=== PATIENT | male | born 1955 | race Caucasian/White ===

== ENCOUNTER 2018-11-06 14:06 | Emergency (ER) | payer OTHER ==
[2018-11-06 14:39] LABS: PLATELET COUNT 350 10^3/uL (150-400)
--- NOTE | 2018-11-06 14:47 | EDPHY ---
HPI/HX/ROS/PE/MDM Narrative: CHIEF COMPLAINT: Inguinal pain, abnormal MRI/lab results. HPI: This patient is a 63 y/o male with history of hypertension and bilateral hip replacements. He arrives today at the request of his neurosurgeon at [facility] for evaluation of a left inguinal fluid collection noted on MRI this week. The patient's hip replacements were completed in [place], [place]. He notes that the left hip was dislocated in July 2017 while being lifted during an EMS transport following a syncopal event. This was replaced successful, but in November of 2017, he developed a severe pain in left hip/inguinal area. This has recurred intermittently since that time , and has been associated with persistent numbness in the left lower extremity. Last weekend, he was hiking and had another episode of inguinal pain which has persisted throughout the week. He was evaluated by neurosurgery on Friday and had an MRI, x-rays, and laboratory studies completed. Today, he was referred here to the emergency department following the results of these studies. He notes that on Friday and Friday he had chills and felt somewhat febrile. Apart from the inguinal pain and left lower extremity numbness, the patient currently feels well. He denies chest pain, difficulty breathing, vomiting, diarrhea, hematuria, incontinence of bladder or bowel, motor deficits in his lower extremities, or other associated symptoms. REVIEW OF SYSTEMS: A comprehensive 10 system review of systems is otherwise negative aside from elements mentioned in the history of present illness and medical decision making. PMH: Bilateral hip replacements. Hypertension (Losartan). SOCIAL HISTORY: Lives in [place]. . PHYSICAL EXAM: General:Patient is alert, in no acute distress. ENT:Eyes are normal to inspection. ENT inspection normal. Neck: Normal inspection. Full range of motion. Respiratory:No respiratory distress. Breath sounds normal bilaterally. Cardiovascular: Regular rate and rhythm. Strong peripheral pulses. Normal cap refill. Abdomen: Tenderness to left anterior groin. The abdomen is nontender to palpation. There are no peritoneal signs. There are normal bowel sounds. Back: Normal to inspection. No tenderness to palpation. Skin: Normal color. No rash. Warm and dry. Extremities: Normal appearance. Full range of motion. Neuro: Oriented x3. Normal motor function. Normal sensory function. ED Course: 63 y/o male with history of bilateral hip replacements arrives at the request of his neurosurgeon's office for evaluation of abnormal findings on an MRI completed this week. He has had intermittent left anterior groin pain and left lower extremity numbness for the past year, more pronounced over the past week following a hike. MRI showed a pocket of fluid suspicious for infection vs. bleeding. Spoke with Dr. Pulido, radiologist. He request CT pelvis with contrast for further evaluation. 16:[address] shows muscle inflammation, no obvious encapsulated area of fluid. See radiologist report for details. Plan for fluid biopsy under CT guidance. . 17:28 Patient returned from biopsy. ~25cc fluid drained and sent for laboratory testing. Patient feels significantly better following the procedure. 17:[address] Malone, transitional living specialist. He will follow up with the patient in the outpatient setting. Reassessed patient. He is feeling well. He is completely alert and oriented following his procedure. Plan to road test. Patient passed road test successfully. He is comfortable with discharge home. He will follow up with Dr. Malone early next week. Follow up and return precautions discussed. He is comfortable with this plan. - Data Points Imaging Results: Imaging Impressions Pelvis CT 11/06/18 15:00 Impression: 1. Heterogeneity of the left iliopsoas muscle with surrounding inflammation. There is no encapsulated fluid collection but there may be some complex fluid in the iliacus muscle near the arthroplasty. Differential includes acute hemorrhagic myositis or infection, possibly from the hip joint. A CT-guided aspiration will be attempted. 2. Left iliac adenopathy, likely reactive. Findings and recommendations discussed with Vel Llanos MD at 1632 hour, 11/06/2018. Muscle Biopsy CT 11/06/18 16:15 IMPRESSION: Technically successful CT-guided aspiration of a left iliacus fluid collection. Approximately 25 mL of bloody material was aspirated and sent to laboratory for microbiologic analysis. Findings and recommendations discussed with Dr. Llanos at 1725 hour, 2018. Imaging: Discussed imaging studies w/ on call Radiologist Laboratory Results: Laboratory Results 11/06/18 14:27 11/06/18 14:27 11/06/18 11/06/18 11/06/18 14:27 14:27 14:27 WBC 6.86 10^3/uL 10^3/uL (3.80-9.50) RBC 4.79 10^6/uL 10^6/uL (4.40-6.38) Hgb 14.2 g/dL g/dL (13.7-17.5) Hct 43.0 % % (40.0-51.0) MCV 89.8 fL fL (81.5-99.8) MCH 29.6 pg pg (27.9-34.1) MCHC 33.0 g/dL g/dL (32.4-36.7) RDW 13.1 % % (11.5-15.2) Plt Count 350 10^3/uL 10^3/uL (150-400) MPV 8.9 fL fL (8.7-11.7) Neut % (Auto) 64.2 % % (39.3-74.2) Lymph % (Auto) 24.3 % % (15.0-45.0) Letcher % (Auto) 6.9 % % (4.5-13.0) Eos % (Auto) 2.2 % % (0.6-7.6) Baso % (Auto) 1.5 % % (0.3-1.7) Nucleat RBC Rel Count 0.0 % % (0.0-0.2) Absolute Neuts (auto) 4.41 10^3/uL 10^3/uL (1.70-6.50) Absolute Lymphs (auto) 1.67 10^3/uL 10^3/uL (1.00-3.00) Absolute Monos (auto) 0.47 10^3/uL 10^3/uL (0.30-0.80) Absolute Eos (auto) 0.15 10^3/uL 10^3/uL (0.03-0.40) Absolute Basos (auto) 0.10 10^3/uL 10^3/uL (0.02-0.10) Absolute Nucleated RBC 0.00 10^3/uL 10^3/uL (0-0.01) Immature Gran % 0.9 % % (0.0-1.1) Immature Gran # 0.06 10^3/uL 10^3/uL (0.00-0.10) PT 12.8 SEC SEC (12.0-15.0) INR 1.00 (0.83-1.16) APTT 36.1 SEC SEC (23.0-38.0) Sodium 140 mEq/L mEq/L (135-145) Potassium 4.5 mEq/L mEq/L (3.5-5.2) Chloride 104 mEq/L mEq/L (97-110) Carbon Dioxide 28 mEq/l mEq/l (22-31) Anion Gap 8 mEq/L mEq/L (6-14) BUN 20 mg/dL mg/dL (7-23) Creatinine 1.1 mg/dL mg/dL (0.7-1.3) Estimated GFR > 60 Glucose 93 mg/dL mg/dL (70-100) Calcium 9.5 mg/dL mg/dL (8.5-10.4) Medications Given: Discontinued Medications Fentanyl (Sublimaze) 0 mcg IVP ONCALL PRN PRN Reason: Per provider during procedure Stop: 11/06/18 17:24 Last Admin: 11/06/18 17:35 Dose: 100 mcg General Time Seen by Provider: 11/06/18 14:15 Initial Vital Signs: Initial Vital Signs Temperature (C) 36.6 C 11/06/18 14:10 Heart Rate 75 11/06/18 14:10 Respiratory Rate 16 11/06/18 14:10 Blood Pressure 156/83 H 11/06/18 14:10 O2 Sat (%) 95 11/06/18 14:10 O2 Delivery Mode Room Air O2 (L/minute) 2 Allergies/Adverse Reactions: Penicillins Allergy (Verified 11/06/18 14:09) Home Medications: Medication Instructions Recorded Aspirin 81mg (*) 11/06/18 Losartan Potassium 11/06/18 Departure - Departure Disposition: Home, Routine, Self-Care Clinical Impression: Left hip pain Condition: Good Report Scribed for: Vel Llanos Report Scribed by: Dennise Jones Date of Report: 11/06/18 Time of Report: 14:48 Physician Review and Approval Statement: Portions of this note were transcribed by an ED scribe. I personally performed the history, physical exam, and medical decision making; and confirm the accuracy of the information in the transcribed note.
[2018-11-06 14:48] LABS: PROTIME(PATIENT) 12.8 SEC (12.0-15.0)
[2018-11-06] MEDS ORDERED: IOPAMIDOL (ISOVUE-300) 100 ML BTL ONE (15:04)
[2018-11-06] MEDS ORDERED: MIDAZOLAM 2 MG/2 ML VIAL IVP PRN (16:24)
[2018-11-06] MEDS ORDERED: fentaNYL 100 MCG/2 ML INJ IVP PRN (16:24)
[2018-11-06] MEDS ORDERED: NALOXONE HCL 0.4 MG/ML INJ IVP PRN (16:24)
[2018-11-06] MEDS ORDERED: FLUMAZENIL 0.5 MG/5 ML MDV IVP PRN (16:24)
[2018-11-06] MEDS ORDERED: fentaNYL 100 MCG/2 ML INJ ONE (16:30)
[2018-11-06] MEDS ORDERED: NALOXONE HCL 0.4 MG/ML INJ ONE (16:30)
[2018-11-06] MEDS ORDERED: NS 1,000 ML IV SCH (16:30)
[2018-11-06 18:07] VITALS: BP 156/97
== END 2018-11-06 18:10 | disposition home or self-care (01) ==
DX: M25.552 Pain in left hip (principal); I10 Essential (primary) hypertension; Z96.643 Presence of artificial hip joint, bilateral
CPT/HCPCS: 96374; J2310; J3010; Q9967

== ENCOUNTER → 2018-12-18 | Outpatient (CLI) | payer OTHER | LOC: FIMAGING 09:54 ==